=== PATIENT | male | born 1985 | race African-American/Black ===

== ENCOUNTER 2016-06-23 23:46 | Emergency (ER) | payer MEDICAID ==
[~2016-06-23] VITALS: Ht 193 cm; Wt 138.3 kg
[2016-06-24 00:05] VITALS: BP 165/96
[2016-06-24] MEDS ORDERED: Lidocaine 2% Visc 15ml soln ONE (00:10)
[2016-06-24] MEDS ORDERED: Lidocaine 2% Visc 15ml soln ORAL ONE (00:15)
[2016-06-24] MEDS ORDERED: BACITRACIN ZIN1 EACH TOPIC (00:16)
[2016-06-24] MEDS ORDERED: Bacitracin Oint UD TOPIC ONE ×2 (00:17→00:30)
[2016-06-24 00:32] VITALS: BP 165/96
--- NOTE | 2016-06-24 00:49 | Emergency Room Report ---
History of Present Illness General Chief Complaint: Earache Source: Patient Present Illness HPI Patient is a 31-year-old male who presented after increased pain to his left ear. Patient had any ear piece which had stuck in his left ear. Patient had been able to remove the object. He denied other locations pain. Patient had not been vomiting or having any difficulty hearing. Allergies: Coded Allergies: No Known Allergies (Unverified , 06/24/16) Patient History Reviewed Nursing Documentation: PMH: Agreed, PSxH: Agreed Nursing Documentation-PMH Past Medical History: No Stated History Review of Systems All Other Systems: negative except mentioned in HPI Physical Exam Vital Signs Date Time Temp Pulse Resp B/P Pulse Ox O2 Delivery O2 Flow Rate FiO2 06/23/16 23:49 97.9 73 18 167/97 97 Room Air General Appearance: well appearing, no apparent distress, alert, GCS 15, non- toxic Head: normocephalic, atraumatic ENT: hearing grossly normal, normal voice, other - ear foreign body Neck: full range of motion, supple Respiratory: no respiratory distress, speaking full sentences Cardiovascular #1: normal inspection, regular rate, rhythm Gastrointestinal: normal inspection Musculoskeletal: normal inspection, no calf tenderness Neurologic: normal inspection, alert, oriented x3, responsive, inspector production plastic parts III-XII nml as tested, normal gait Psychiatric: normal inspection, mood/affect normal Skin: no rash Medical Decision Making Diagnostic Impression: Primary Impression: Foreign body ER Course Patient presented for ear pain. Differential diagnosis included was not limited to otitis media, malignant otitis externa, foreign body, cellulitis, mastoiditis, carotid dissection, myocardial infarction among others. The patient noted have a ear foreign body. This was removed with a right angle. The there is a small abrasion to the inferior portion of the ear canal after removal. Bacitracin ointment was applied. Patient was advised not to put any objects in his ear. The patient is advised to follow up with primary care doctor in 1-2 days. Patient is advised to return if any worsening condition or if any changes in status that are concerning. Last Vital Signs Date Time Temp Pulse Resp B/P Pulse Ox O2 Delivery O2 Flow Rate FiO2 06/24/16 00:32 97.9 73 18 165/96 97 Room Air Status: improved Disposition: HOME, SELF-CARE Condition: Stable Scripts Bacitracin Zinc* (BACITRACIN ZINC*) 1 Each Packet 1 APPLIC TOPIC THREE TIMES A DAY, #10 PACKET Prov: Pranay Doe 06/24/16 Referrals: NON PHYSICIAN (PCP) Patient Instructions: Ear Foreign Body Pranay Doe Jun 24, 2016 00:49
== END 2016-06-24 | disposition home or self-care (01) ==
LOC: EMR 06-24 00:15
DX: T16.2XXA Foreign body in left ear, initial encounter (principal); X58.XXXA Exposure to other specified factors, initial encounter; Y92.9 Unspecified place or not applicable